=== PATIENT | female | born 1990 | race Caucasian/White ===

== ENCOUNTER 2018-05-14 23:23 | Observation (INO) | payer MEDICAID ==
[~2018-05-14] VITALS: Ht 167.6 cm; Wt 79.8 kg
[2018-05-14] MEDS ORDERED: PREN1TAB78 MT (23:47)
[2018-05-15] MEDS ORDERED: LACTATED RINGERS 1,000 ML IV SCH (02:30)
[2018-05-15] MEDS ORDERED: ACETAMINOPHEN 500MG TABLET PO NR (02:30)
== END 2018-05-15 03:45 | disposition home or self-care (01) ==
LOC: L&D 23:23
PROVIDERS: ADMIT Obstetrics & Gynecology; ATTEND Obstetrics & Gynecology
DX: O62.9 Abnormality of forces of labor, unspecified (principal); Z3A.39 39 weeks gestation of pregnancy
CPT/HCPCS: G0378; J7120; 96360; 99281